=== PATIENT | male | born 1960 | race Asian ===

== ENCOUNTER 2025-08-03 20:35 | Emergency (ER) | payer OTHER ==
[~2025-08-03] VITALS: Ht 154.9 cm; Wt 50.1 kg
[2025-08-03 21:04] VITALS: TEMP 98.805344
[2025-08-03 21:06] LABS: PLATELET COUNT (AUTO) 250 K/uL (150-450); RED BLOOD CELL COUNT(AUTO) 4.04 MIL/uL (4.50-5.90); RED CELL DISTRIBUTION WIDTH 13.1 % (11.5-14.5); WHITE BLOOD COUNT (AUTO) 6.4 K/uL (4.5-11.0)
[2025-08-03 21:15] LABS: CALCIUM, TOTAL 9.2 mg/dL (8.8-10.5); CREATININE 1.49 mg/dL (0.60-1.30); GLOMERULAR FILTR. RATE CALC 48.0 mL/min (>60); GLUCOSE,RANDOM 118.0 mg/dL (70-110); SODIUM SERUM 138.0 mmol/L (136-145); UREA NITROGEN, BLOOD 25.0 mg/dL (7-18)
[2025-08-03] MEDS: TENECTEPLASE PER STROKE PROTOCOL CLINICAL ONE (21:15)
[2025-08-03] MEDS ORDERED: SODIUM CHLORIDE 0.9% 100 ML ONE (21:19)
[2025-08-03] MEDS ORDERED: IOHEXOL 350 MG/ML 100 ML VIAL ONE (21:19)
[2025-08-03 21:20] LABS: ASPARTATE AMINOTRANSFERASE 22.0 U/L (15-37); TOTAL PROTEIN, SERUM 7.1 g/dL (6.4-8.2)
[2025-08-03 21:24] LABS: TROPONIN I-HIGH SENSITIVITY 182 ng/L (<76)
[2025-08-03] MEDS ORDERED: LABETALOL HCL 5 MG/ML 20 ML VIAL IVP ONE (21:28)
[2025-08-03] MEDS: LABETALOL HCL 5 MG/ML 20 ML VIAL IVP ONE (21:30)
[2025-08-03 22:17] VITALS: BP 144/85; PULSE 87; RESP 19; O2SAT 95
== END 2025-08-04 02:23 | disposition short-term general hospital (02) ==
LOC: EMS 20:35
DX: I63.9 Cerebral infarction, unspecified (principal); I10 Essential (primary) hypertension; F17.210 Nicotine dependence, cigarettes, uncomplicated
CPT/HCPCS: 99291; 70496; 37195; 96365; 96366; 71045; 96375; 80053; 82962; 84484; 85025; 85610; 85730; 86850; 86900; 86901; 36415; 70498; 93005; 70450; G0480; Q9967; J3490 ×2; J7050 ×2; 82948

== ENCOUNTER 2025-08-10 10:59 | Inpatient (IN) | payer OTHER ==
[~2025-08-10] VITALS: Ht 154.9 cm; Wt 49.4 kg
[2025-08-10 13:20] VITALS: BP 135/53; PULSE 75; RESP 18; TEMP 98.9; O2SAT 100
[2025-08-10] MEDS ORDERED: ACETAMINOPHEN 325 MG TABLET PO PRN (14:00)
[2025-08-10] MEDS ORDERED: CALCIUM CARBONATE 500 MG CHEWABLE TABLET CHEW PRN (14:00)
[2025-08-10] MEDS ORDERED: IPRATROPIUM BROMIDE 0.5 MG/2.5 ML NEB SOLUTION NEB PRN (14:00)
[2025-08-10] MEDS: INFLUENZA VIRUS VACCINE TVS (6MO+) 2025-26/PF 45 MCG/0.5 ML SYRINGE IM. ONE (19:00)
[2025-08-10 20:00] VITALS: BP 148/58; PULSE 69; RESP 18; TEMP 98.4; O2SAT 100
[2025-08-10] MEDS: FAMOTIDINE 20 MG TABLET PO SCH (21:22)
[2025-08-10] MEDS: ATORVASTATIN CALCIUM 40 MG TABLET PO SCH (21:22)
[2025-08-10] MEDS: APIXABAN 5 MG TABLET PO SCH (21:22)
[2025-08-10] MEDS: SENNOSIDES/DOCUSATE SODIUM 8.6-50 MG TABLET PO SCH (21:22)
[2025-08-11] MEDS ORDERED: ALBUTEROL SULFATE 2.5 MG/0.5 ML NEB SOLUTION NEB PRN (03:30)
[2025-08-11 07:24] LABS: PLATELET COUNT (AUTO) 244 K/uL (150-450); RED BLOOD CELL COUNT(AUTO) 3.22 MIL/uL (4.50-5.90); RED CELL DISTRIBUTION WIDTH 12.8 % (11.5-14.5); WHITE BLOOD COUNT (AUTO) 5.9 K/uL (4.5-11.0)
[2025-08-11 07:42] LABS: ASPARTATE AMINOTRANSFERASE 29 U/L (15-37); CALCIUM, TOTAL 8.7 mg/dL (8.8-10.5); CREATININE 1.11 mg/dL (0.60-1.30); GLOMERULAR FILTR. RATE CALC > 60 mL/min (>60); GLUCOSE,RANDOM 98 mg/dL (70-110); SODIUM SERUM 138 mmol/L (136-145); TOTAL PROTEIN, SERUM 6.5 g/dL (6.4-8.2); UREA NITROGEN, BLOOD 18 mg/dL (7-18)
[2025-08-11 08:00] VITALS: BP 139/63; PULSE 64; RESP 19; TEMP 98.4; O2SAT 99
[2025-08-11] MEDS: ETHYL ALCOHOL 62% ANTISEPTIC NASAL SANITIZER 0.6 ML AMPUL NASAL SCH (08:11)
[2025-08-11] MEDS: POLYETHYLENE GLYCOL 3350 17 GM PACKET PO SCH (08:12)
[2025-08-11] MEDS: NICOTINE 14 MG/24 HOUR PATCH TD SCH (08:13)
[2025-08-11] MEDS: METOPROLOL TARTRATE 25 MG TABLET PO SCH (08:20)
[2025-08-11 21:22] VITALS: BP 155/64; PULSE 64; RESP 18; TEMP 98.2; O2SAT 98
[2025-08-11 21:23] VITALS: O2SAT 98
[2025-08-12 08:00] VITALS: BP 139/63; PULSE 63; RESP 18; TEMP 98.2; O2SAT 99
[2025-08-12 20:34] VITALS: BP 157/64; PULSE 66; RESP 18; TEMP 98.6; O2SAT 98
[2025-08-12 23:23] VITALS: O2SAT 98
[2025-08-13 08:00] VITALS: BP 135/72; PULSE 87; RESP 18; TEMP 98.4; O2SAT 100
[2025-08-13 08:31] LABS: CHOL/HDL RATIO 4.1 (4.2-7.3); LDL CHOL (CALC.) 98.0 mg/dL (0-130)
[2025-08-13 20:00] VITALS: BP 154/62; PULSE 67; RESP 18; TEMP 98.2; O2SAT 99
[2025-08-14 07:30] VITALS: BP 148/69; PULSE 61; RESP 18; TEMP 98.2; O2SAT 99
[2025-08-14 08:30] VITALS: PULSE 62; O2SAT 99
[2025-08-14] MEDS ORDERED: SENN-338 PO (10:37)
[2025-08-14] MEDS ORDERED: ATOR40TA71 PO (10:37)
[2025-08-14] MEDS ORDERED: APIX5TAB PO (10:37)
[2025-08-14] MEDS ORDERED: METO25 PO (10:37)
[2025-08-14] MEDS ORDERED: NICO-703 TD (10:37)
[2025-08-14] MEDS ORDERED: FAMO20 PO (10:37)
[2025-08-14] MEDS ORDERED: AMLO-258 PO (10:37)
[2025-08-14 11:00] VITALS: BP 133/66; PULSE 58
[2025-08-14 21:02] VITALS: BP 159/71; PULSE 65; RESP 18; TEMP 98.4; O2SAT 98
[2025-08-14 21:03] VITALS: O2SAT 98
[2025-08-15 08:00] VITALS: BP 133/68; PULSE 86; RESP 18; TEMP 98.1; O2SAT 100
== END 2025-08-15 13:50 | disposition home health service (06) | DRG 58 ==
LOC: 2WR 13:33
PROVIDERS: ADMIT Physical Medicine & Rehabilitation; ATTEND Physical Medicine & Rehabilitation
DX: I69.351 Hemiplegia and hemiparesis following cerebral infarction affecting right dominant side (principal); E46 Unspecified protein-calorie malnutrition; R47.01 Aphasia; R13.12 Dysphagia, oropharyngeal phase; D64.9 Anemia, unspecified; E11.22 Type 2 diabetes mellitus with diabetic chronic kidney disease; I48.0 Paroxysmal atrial fibrillation; E78.5 Hyperlipidemia, unspecified; F17.210 Nicotine dependence, cigarettes, uncomplicated; J44.9 Chronic obstructive pulmonary disease, unspecified; N18.9 Chronic kidney disease, unspecified; I13.10 Hypertensive heart and chronic kidney disease without heart failure, with stage 1 through stage 4 chronic kidney disease, or unspecified chronic kidney disease; I25.10 Atherosclerotic heart disease of native coronary artery without angina pectoris; R41.89 Other symptoms and signs involving cognitive functions and awareness; R47.1 Dysarthria and anarthria; Z74.09 Other reduced mobility; Z74.1 Need for assistance with personal care; I25.2 Old myocardial infarction; Z79.899 Other long term (current) drug therapy; Z68.20 Body mass index [BMI] 20.0-20.9, adult
CPT/HCPCS: 80053; 80061; 85025; 87081; 92507; 92523; 93931; 93970; 97110; 97112; 97116; 97162; 97167; 97530; 97535; 99366